=== PATIENT | female | born 1980 | race African-American/Black ===

== ENCOUNTER 2016-04-21 07:29 | Emergency (ER) | payer MEDICARE ==
[2016-04-21 07:27] LABS: URINE SOURCE CLEAN CATCH
[~2016-04-21 07:29] MED LIST: CIPRO PO; DIAZEPAM; IBUPROFEN600 MG PO; IBUPROFEN800 MG PO; IMODIUM2 MG PO; LORTAB 5/500 TA1 TA1 PO; NO MEDICATIONS; NORCO 7.5-3251 EACH; PHENERGAN SUPP25 MG PR; PHENERGAN25 M1 DOB; PHENERGAN25 M1 PO; ROBAXIN 750750 M1 PO; TYLENOL #3 PO
[2016-04-21 07:30] LABS: MICRO INDICATED? YES; URINE APPEARANCE CLEAR; URINE BILIRUBIN NEG (NEG); URINE BLOOD 3+ (NEG); URINE COLOR YELLOW; URINE GLUCOSE NEG (NORM); URINE KETONE NEG (NEG); URINE LEUKOCYTE ESTERASE TRACE (NEG); URINE NITRATE POS (NEG); URINE PROTEIN NEG (NEG); URINE SPECIFIC GRAVITY 1.025 (1.003-1.035); URINE UROBILINOGEN 0.2 MG/DL (NORM)
[2016-04-21 07:38] LABS: CULTURE INDICATED? YES; URINE BACTERIA 1+ (NEG); URINE MUCUS PRESENT; URINE SQUAMOUS EPITHELIAL CELL MODERATE /[HPF]
[2016-04-25] MEDS ORDERED: KEFLEX500 M1 PO (11:08)
== END 2016-04-21 08:01 | disposition home or self-care (01) ==
LOC: SED 07:29
PROVIDERS: Emergency Medicine
DX: N10 Acute pyelonephritis (principal); F17.210 Nicotine dependence, cigarettes, uncomplicated; Z90.49 Acquired absence of other specified parts of digestive tract; Z98.84 Bariatric surgery status
CPT/HCPCS: 81003; 84703; 87086; 87088; 87186; 99284

== ENCOUNTER 2016-09-07 10:27 | Emergency (ER) | payer MEDICARE ==
--- NOTE | ~2016-09-07 | CT4 ---
[facility] A Service of [facility] & [facility] RADIOLOGY TEXT RESULTS PATIENT: PABLO ALATORRE LOCATION: SED : 80 UNIT #: [id number] AGE: [address]: DANIEL KEITH SEX: F ORDER DR: [id number] [address] [address] [id number] MR#: [id number] Acc #: [id number] NAME: PABLO ALATORRE : 1980 SEX: F STUDY DATE/TIME: 09/07/2016 11:56 UNIT: SED ROOM: STUDY DESCRIPTION: CT Abd and Pelv Wo Cont Attending Physician: (Wilian) Daniel Keith Ordering Physician: Evon) Daniel Keith Primary Care Physician: No Primary Care Physician MEDICAL IMAGING REPORT This report is preliminary unless electronic signature is present. EXAM CT abdomen pelvis without contrast; 09/07/2016, 1156 hours. CLINICAL HISTORY 36-year-old woman complaining of low back pain, right flank pain for 2 days with associated frequent, painful urination. COMPARISON None. TECHNIQUE Helical noncontrasted images were obtained from the lung bases through the pubic symphysis. Sagittal and coronal reconstructions were performed. Total exam DLP 1395 mGy-cm. This CT exam was performed with one or more of the following radiation dose reduction techniques: automatic exposure control, adjustment of mA and/or kV according to patient size, and iterative reconstruction. FINDINGS Images through the lung bases are clear. There are no effusions. There is mild distension of the distal esophagus. Images through the abdomen demonstrate Lap-Band at the proximal stomach. The liver, spleen, pancreas and bile ducts are normal. There are clips consistent with prior cholecystectomy. The left and right adrenal glands are normal. The kidneys demonstrate hyperdensity at the corticomedullary junctions with punctate stones within both kidneys, nonobstructing. There is no pelvocaliectasis or ureterectasis. No ureteral stones are seen. The bladder is only partially filled, but appears normal. There is no renal cortical mass or changes to suggest pyelonephritis, although the sensitivity for pyelonephritis is decreased without contrast [facility] A Service of [facility] & [facility] RADIOLOGY TEXT RESULTS PATIENT: PABLO ALATORRE LOCATION: SED : 80 UNIT #: [id number] AGE: [address]: DANIEL KEITH SEX: F ORDER DR: xiao. The small bowel is normal. The terminal ileum, appendix and cecum are normal. There is no colonic distension. CT pelvis demonstrates a calcified density to the right of the rectum which is nonspecific, but appears benign. The uterus is elongated in the cephalocaudad dimension but not overall enlarged. There is a follicular cyst on the left ovary. There is additional follicular cyst on the right ovary. Bone window images demonstrate no fracture. The lumbar spine is normally aligned. No significant degenerative change is seen. IMPRESSION 1. The patient has generalized hyperdensity at the corticomedullary junctions of both kidneys with punctate nonobstructing stones measuring up to 2 mm in both kidneys. There is no pelvocaliectasis, ureterectasis or ureteral calculus. 2. There is no definite evidence of pyelonephritis within the kidneys, however, sensitivity is reduced with the lung without IV contrast. 3. Cholecystectomy change with no bile duct dilatation. 4. Normal appendix. 5. Postop Lap-Band placement. 6. CT pelvis demonstrates an elongated uterus extending cephalad into the right of midline but overall normal uterine volume. There are small follicular cysts on both ovaries. No pelvic free fluid. 7. Lumbar spine is normally aligned with no fracture or significant degenerative change. Dictated by... Lis Liang M.D. THIS IS AN ELECTRONICALLY VERIFIED REPORT Lis Liang M.D. at 09/07/2016 9:21 PM Ann-Marie TD: 09/07/2016 17:30 JOB #: [id number] MEDICAL IMAGING REPORT Page 1 of 1
[~2016-09-07 10:27] MED LIST changes: +KEFLEX500 M1 PO
[2016-09-07 11:02] LABS: URINE APPEARANCE CLEAR; URINE BILIRUBIN NEG (NEG); URINE BLOOD 3+ (NEG); URINE COLOR YELLOW; URINE GLUCOSE NEG (NORM); URINE KETONE TRACE (NEG); URINE LEUKOCYTE ESTERASE NEG (NEG); URINE NITRATE NEG (NEG); URINE PH 5.5 (5-8); URINE PROTEIN NEG (NEG); URINE SOURCE CLEAN CATCH; URINE SPECIFIC GRAVITY 1.025 (1.003-1.035); URINE UROBILINOGEN 0.2 MG/DL (NORM)
[2016-09-07 11:03] LABS: MICRO INDICATED? YES
[2016-09-07 11:19] LABS: CULTURE INDICATED? YES; URINE BACTERIA 1+ (NEG); URINE MUCUS PRESENT; URINE SQUAMOUS EPITHELIAL CELL OCCAS /[HPF]; URINE WBC 0-2 /[HPF] (0-5)
[2016-09-07 11:24] LABS: BASOPHIL% 0.6 % (0-2.5); HEMATOCRIT 33.1 % (35.0-45.0); HEMOGLOBIN 11.3 gm/dL (12.0-16.0); LYMPHOCYTE# 1.5 X10e3 (1.0-3.5); LYMPHOCYTE% 30.6 % (17.0-45.0); MEAN CELL VOLUME 89.1 FL (83-96); MEAN CORPUSCULAR HEMOGLOBIN 30.5 PG (28-34); MEAN CORPUSCULAR HGB CONC 34.2 g/dL (30-36); MONOCYTE# 0.3 X10e3 (0-1.0); MONOCYTE% 6.7 % (3.0-12.0); NEUTROPHIL# 2.9 X10e3 (1.5-7.1); NEUTROPHIL% 61.1 % (40-75); PLATELET COUNT 211 X10e3 (140-420); RED BLOOD COUNT 3.72 X10e (3.90-5.30); RED CELL DISTRIBUTION WIDTH 12.6 % (11.0-15.5); WHITE BLOOD COUNT 4.8 X10e3 (4.0-10.5)
[2016-09-07 11:47] LABS: DIFF IND NO
[2016-09-07 12:16] LABS: ALBUMIN SERUM 3.7 g/dL (3.5-5.0); BILIRUBIN,TOTAL 0.3 mg/dL (0.2-2.0); BUN/CREATININE RATIO 21.25; CALCIUM SERUM 8.6 mg/dL (8.4-10.2); CREATININE SERUM 0.8 mg/dL (0.6-1.4); POTASSIUM 3.2 mmol/L (3.5-5.1); PROTEIN TOTAL SERUM 6.9 g/dL (6.0-8.3)
== END 2016-09-07 13:06 | disposition home or self-care (01) ==
LOC: SED 10:27
PROVIDERS: Physician Assistant
DX: N30.01 Acute cystitis with hematuria (principal); Z90.49 Acquired absence of other specified parts of digestive tract; F17.200 Nicotine dependence, unspecified, uncomplicated
CPT/HCPCS: 36415; 74176; 80053; 81003; 84703; 85025; 87086; 87088; 87186; 96374; 96375; 99284; J1885; J2405